=== PATIENT | female | born 1955 | race Caucasian/White ===

== ENCOUNTER 2016-05-10 11:48 | Emergency (ER) | payer OTHER ==
[~2016-05-10] VITALS: Ht 162.6 cm; Wt 68.0 kg
[~2016-05-10 11:48] MED LIST: FENOFIBRATE134 M1 PO; PERCOCET 325 MG1 TA2 PO; POLYTRIM O200 GTT/BO OPH; VENLAFAXINE HY150 MG PO
--- NOTE | 2016-05-10 13:23 | ED GENERAL ADULT ---
History of Present Illness General Chief Complaint: Shoulder Injury Stated Complaint: LEFT SHOULDER PAIN RADIATING TO NECK Source: patient Exam Limitations: no limitations Vital Signs & Intake/Output Vital Signs & Intake/Output Vital Signs Date Time Temp Pulse Resp B/P Pulse O2 O2 Flow FiO2 Ox Delivery Rate 05/10 1521 98.3 68 18 120/70 98 Room Air 05/10 1348 97.1 72 18 119/67 98 Room Air 05/10 1346 70 111/73 03 1154 96.5 68 20 116/74 100 Room Air Allergies Coded Allergies: erythromycin base (DIARRHEA 05/10/16) Reconcile Medications Cyclobenzaprine HCl 10 MG TABLET 1 TAB PO TID PRN MUSCLE RELAXANT MAY CAUSE DROWSINESS Fenofibrate,Micronized (Fenofibrate) 134 MG CAPSULE 1 CAP PO DAILY CHOLESTEROL (Reported) Tramadol HCl 50 MG TABLET 1-2 TAB PO Q6 PRN pain Triage Note: PT TO ED C/O LEFT SHOULDER PAIN SINCE TUESDAY. PAIN RADIATES TO NECK AND LEFT EAR. C/O NAUSEA FROM THE PAIN. DENIES ANY INJURY. Triage Nurses Notes Reviewed? yes HPI: Patient is a 61 year old female presents complaining of left shoulder pain. Pain onset on . Pain is a burning pain, worsens with movement and palpation. Patient has been taking Aspirin with mild improvement. Pain is currently severe. Decreased range of motion of left upper extremity secondary to pain. Patient is right hand dominant. Pain radiates into her neck with head movement. Denies numbness, weakness, falls, fevers, rashes. Patient reports she had diffuse abdominal pain on Tuesday which resolved that day. Past History Travel History Traveled to [place] past 21 day No Medical History Any Pertinent Medical History? see below for history Neurological: NONE EENT: NONE Cardiovascular: PVD Respiratory: NONE Gastrointestinal: diverticulitis Hepatic: NONE Renal: NONE Musculoskeletal: NONE Psychiatric: depression Endocrine: NONE Blood Disorders: NONE Cancer(s): NONE YOKE PRESSER/Reproductive: NONE Surgical History Surgical History: cholecystectomy, thyroidectomy Psychosocial History What is your primary language Kinyarwanda Tobacco Use: Quit >30 days ago ETOH Use: denies use Illicit Drug Use: denies illicit drug use Family History Hx Contributory? No Review of Systems Review of Systems Constitutional: Reports: chills. Denies: fever. EENTM: Reports: no symptoms. Respiratory: Denies: cough, short of breath. Cardiovascular: Denies: chest pain. GI: Denies: abdominal pain, nausea, vomiting. Genitourinary: Reports: no symptoms. Musculoskeletal: Reports: neck pain. Denies: back pain. Skin: Reports: no symptoms. Neurological/Psychological: Reports: headache. Denies: numbness. Hematologic/Endocrine: Denies: bruising, bleeding. Immunologic/Allergic: Denies: splenectomy. Physical Exam Physical Exam General Appearance: well developed/nourished, alert, awake Head: atraumatic, normal appearance Eyes: Bilateral: normal appearance, PERRL, EOMI. Ears, Nose, Throat: hearing grossly normal Neck: normal inspection, supple, full range of motion, mild left cervical paraspinal tenderness Respiratory: normal breath sounds, chest non-tender, no respiratory distress, lungs clear Cardiovascular: regular rate/rhythm Peripheral Pulses: 2+ radial (L) Gastrointestinal: soft Back: normal inspection, normal range of motion Extremities: tenderness left shoulder anteriorly and laterally. Tenderness left superior trapezius muscle. Pain worsens with shoulder flexion and abduction and with neck lateral movements. active flexion and abduction to 90 degrees. Neurologic/Psych: no motor/sensory deficits, awake, alert, oriented x 3, normal gait, normal mood/affect Skin: intact, normal color, warm/dry Lymphatic: no anterior cervical liss Core Measures ACS in differential dx? Yes CVA/TIA Diagnosis: No Severe Sepsis Present: No Septic Shock Present: No Progress Differential Diagnoses I considered the following diagnoses in my evaluation of the patient: rotator cuff injury, muscle strain, bursitis, cervical spine injury, herniated disc, ACS , aortic dissection Plan of Care: Orders Procedure Date/time Status Durable Medical Equipment 05/10 1519 Active Pain reproducible with range of motion of LUE and palpation of left shoulder. Appears musculoskeltal in nature. Results of x-rays discussed with patient. Appears stable for discharge with conservative therapy. (MARGIE BRYAN,[place]) Diagnostic Imaging: Viewed by Me: Radiology Read. Discussed w/RAD: Radiology Read. Radiology Impression: PATIENT: BABITA MERINO PRESENT AGE: 61 PATIENT ACCOUNT NO: [id number] : 56 LOCATION: [facility] ORDERING PHYSICIAN: TRAVON BRYAN SERVICE DATE: 05/10/163703 EXAM TYPE: RAD - XRY-SHOULDER COMPLETE-LEFT EXAMINATION: XR SHOULDER, LEFT CLINICAL INFORMATION: Left shoulder pain COMPARISON: Left shoulder x-ray March 2014 TECHNIQUE: AP external rotation, Grashey, scapular Y, and axillary views of the left shoulder. FINDINGS: There is slight deformity of the proximal humerus likely related to the previously noted fracture no new fracture identified. The AC joint is normal. The glenohumeral joint is normal. IMPRESSION: Slight deformity the proximal humerus related to old fracture subsequently healed DICTATED BY: MAKENNA MARKHAM MD DATE/TIME DICTATED:05/10/161447 WRITER EDITOR:RONNIE DATE/TIME TRANSCRIBED:05/10/161447 CONFIDENTIAL, DO NOT COPY WITHOUT APPROPRIATE AUTHORIZATION. <Electronically signed in Other Vendor System> SIGNED BY: MAKENNA MARKHAM MD 05/10/161452, PATIENT: BABITA MERINO PRESENT AGE: 61 PATIENT ACCOUNT NO: [id number] : 56 LOCATION: [facility] ORDERING PHYSICIAN: TRAVON BRYAN SERVICE DATE: 05/10/16 EXAM TYPE: RAD - XRY-CERV SPINE 3 VIEWS OR LESS EXAMINATION: XR CERVICAL SPINE CLINICAL INFORMATION: Neck pain radiating to left. COMPARISON: None TECHNIQUE: Cervical spine, 3 views FINDINGS: The lateral radiograph allows visualization from skull base to the C6-C7 level. The cervical vertebra have well preserved height and alignment. No evidence of fracture, subluxation or prevertebral soft tissue swelling. The disc spaces are normal. The facet joints and uncovertebral joints are unremarkable. There is mild atherosclerotic calcification of the right carotid bulb. The lung apices are normal. IMPRESSION: 1. No acute findings. No evidence of cervical spine fracture or malalignment. 2. No evidence of degenerative disc disease. DICTATED BY: DELMAR GREENBERG MD DATE/TIME DICTATED:05/10/161449 WRITER EDITOR:RONNIE DATE/TIME TRANSCRIBED:05/10/161449 CONFIDENTIAL, DO NOT COPY WITHOUT APPROPRIATE AUTHORIZATION. <Electronically signed in Other Vendor System> SIGNED BY: DELMAR GREENBERG MD 05/10/161455 Initial ED EKG: none Departure Departure Time of Disposition: 151 Disposition: HOME OR SELF CARE Condition: Stable Clinical Impression Primary Impression: Cervical radiculopathy Secondary Impressions: Left shoulder strain Qualifiers: Encounter type: initial encounter Qualified Code: S46.912A - Strain of unspecified muscle, fascia and tendon at shoulder and upper arm level, left arm, initial encounter Referrals: RAUL SHEA,SHARA BRYAN,PAULINO STAPLES MD,MARYANA (PCP/Family) Additional Instructions: Rest, apply heat to the affected area for 20 minutes 4-5 times a day, wear sling for support. Move your arm each hour to prevent stiffening. Follow up with your orthopedist, Dr. Diaz or with Paulino BRYAN, if no improvement within 3-4 days. Return to the ER if worsening of symptoms. Departure Forms: Customer Survey General Discharge Information Prescriptions: Current Visit Scripts Tramadol HCl 1-2 TAB PO Q6 PRN pain #15 TAB Cyclobenzaprine HCl 1 TAB PO TID PRN MUSCLE RELAXANT #20 TAB MAY CAUSE DROWSINESS Critical Care Note Critical Care Note Critical Care Time: non-applicable
--- NOTE | 2016-05-10 14:53 | RADIOLOGY REPORT ---
EXAMINATION: XR SHOULDER, LEFT CLINICAL INFORMATION: Left shoulder pain COMPARISON: Left shoulder x-ray March 2014 TECHNIQUE: AP external rotation, Grashey, scapular Y, and axillary views of the left shoulder. FINDINGS: There is slight deformity of the proximal humerus likely related to the previously noted fracture no new fracture identified. The AC joint is normal. The glenohumeral joint is normal. IMPRESSION: Slight deformity the proximal humerus related to old fracture subsequently healed
--- NOTE | 2016-05-10 14:56 | RADIOLOGY REPORT ---
EXAMINATION: XR CERVICAL SPINE CLINICAL INFORMATION: Neck pain radiating to left. COMPARISON: None TECHNIQUE: Cervical spine, 3 views FINDINGS: The lateral radiograph allows visualization from skull base to the C6-C7 level. The cervical vertebra have well preserved height and alignment. No evidence of fracture, subluxation or prevertebral soft tissue swelling. The disc spaces are normal. The facet joints and uncovertebral joints are unremarkable. There is mild atherosclerotic calcification of the right carotid bulb. The lung apices are normal. IMPRESSION: 1. No acute findings. No evidence of cervical spine fracture or malalignment. 2. No evidence of degenerative disc disease.
[2016-05-10 15:21] VITALS: BP 120/70
[2016-05-10] MEDS ORDERED: TRAMADOL HCL50 M1 PO (15:22)
[2016-05-10] MEDS ORDERED: CYCLOBENZAPRINE10 M1 PO (15:22)
== END 2016-05-10 15:24 ==
LOC: ERH 11:48
DX: S46.912A Strain of unspecified muscle, fascia and tendon at shoulder and upper arm level, left arm, initial encounter (principal); M54.12 Radiculopathy, cervical region; X58.XXXA Exposure to other specified factors, initial encounter
CPT/HCPCS: 72040; 73030-LT